=== PATIENT | male | born 1990 | race African-American/Black ===

== ENCOUNTER 2016-08-15 15:28 | Emergency (ER) ==
[2016-08-15 15:39] VITALS: BP 131/74
--- NOTE | 2016-08-15 16:10 | PROVIDER DOCUMENTATION ---
HPI-EENT General - General Chief Complaint: Cold Symptoms Stated Complaint: COLD SX Time Seen by Provider: 08/15/16 16:01 Allergies/Adverse Reactions: Patient Allergies Allergy/AdvReac Type Severity Reaction Status Date / Time brompheniramine maleate * Allergy Severe SEIZURES Verified 08/15/16 15:39 [From Dimetapp (brompheniramine-PPA)] phenylpropanolamine HCl * Allergy Severe SEIZURES Verified 08/15/16 15:39 [From Dimetapp (brompheniramine-PPA)] Home Medications: Home Medication List Medication Instructions Recorded Confirmed Last Taken Type Azithromycin [Zithromax Z-Jayden] 250 mg PO DIRECTED #1 pkg 08/15/16 Unknown Rx Guaifenesin/Dextromethorphan 10 ml PO BID #120 ml 08/15/16 Unknown Rx [Guaifenesin Dm Syrup] - History of Present Illness-EENT General Nature of Presenting Problem: Pt presents with c/o cough, congestion, fatigue x2 days Tried otc meds with symptoms EENT Location: reports: throat, facial Quality of Pain: reports: aching, pressure Associated Symptoms: reports: cough, fever, malaise, nasal congestion/drainage, sinus infection, sore throat Review of Systems - Adult - REVIEW OF SYSTEMS - ADULT Constitutional: reports: chills, fever, fatique Eyes: denies: blurred vision, double vision Ears, Nose, Mouth & Throat: reports: sinus problem, throat pain Cardiovascular: reports: no symptoms reported Respiratory: reports: cough Gastrointestinal: reports: no symptoms reported Neurological: denies: numbness, paresthesia All Other Systems: Reviewed and Negative Past History - Adult - PAST MEDICAL HISTORY-ADULT Review of Records: reports: Old Records Reviewed, Nursing Assessment Review, Medications Reviewed, Social history reviewed & non-contributory. - PRIOR SURGERIES/PROCEDURES Surgical/Procedure History: reports: tonsillectomy, other (ear drum surgery) - IMMUNIZATION STATUS Childhood Immunizations: UTD Flu Vaccine: See Nurse Assessment - FAMILY HISTORY Family History: reviewed, not pertinent - SOCIAL HISTORY Smoking: less than 1 pack/day Provider spent 3-5 mins advising pt. on dangers of tobacco.: Discussed manners to quit use, and f/u contacts for add'l counseling. Physical Exam- EENT - Physical Exam EENT Initial Vital Signs Reviewed: Yes General Appearance: appears well, alert, no apparent distress Eye Exam: bilateral eye: normal inspection, PERRL, EOMI Ear Exam: bilateral ear: auricle normal, canal normal, TM normal Nasal Exam: negative: sinus tenderness Throat Exam: negative: pharynx normal (erythematous), tonsillar swelling ( tonsils surgically removed) Neck: non-tender, full range of motion, supple. negative: lymphadenopathy Respiratory: chest non-tender, lungs clear, normal breath sounds Cardiovascular: regular rate, rhythm, no edema Abdominal Exam: normal bowel sounds, non tender, soft Lymphatic: negative: cervical node tenderness Back Exam: normal inspection Extremity: normal gait, normal inspection Integumentary: normal color, normal turgor, warm/dry Neurologic: grossly normal, no motor/sensory deficits Psych/Mental Status: normal thought content, normal thought process Progress - PLAN OF CARE/RESULTS Progress/Plan/Lab Results: Vital Signs Temp Pulse Resp BP Pulse Ox 08/15/16 15:37 98.5 F 77 18 131/74 100 brompheniramine maleate * [From Dimetapp (brompheniramine-PPA)] Allergy (Severe , Verified 08/15/16 15:39) SEIZURES phenylpropanolamine HCl * [From Dimetapp (brompheniramine-PPA)] Allergy (Severe , Verified 08/15/16 15:39) SEIZURES No Home Medications 08/15/16 Vital Signs Temp Pulse Resp BP Pulse Ox 08/15/16 15:37 98.5 F 77 18 131/74 100 brompheniramine maleate * [From Dimetapp (brompheniramine-PPA)] Allergy (Severe , Verified 08/15/16 15:39) SEIZURES phenylpropanolamine HCl * [From Dimetapp (brompheniramine-PPA)] Allergy (Severe , Verified 08/15/16 15:39) SEIZURES No Home Medications 08/15/16 Laboratory 08/15/16 16:23 Influenza A (Rapid) NEGATIVE Influenza B (Rapid) NEGATIVE Laboratory Tests 08/15/16 16:23 Influenza A (Rapid) NEGATIVE Influenza B (Rapid) NEGATIVE Departure - Departure Time of Disposition Order: 16:49 DIAGNOSIS: URI (upper respiratory infection) Qualifiers: URI type: unspecified URI Qualified Code(s): J06.9 - Acute upper respiratory infection, unspecified Disposition: HOME 01 Certified Medical Emergency: Emergent Condition: Good Additional Instructions: ED Follow Up Instructions: You have been treated by a care provider in the Emergency Department. These instructions are being provided to you so you can have an understanding of how to care for yourself upon discharge. Upon discharge from the Emergency Department, you are responsible for making arrangements for follow-up care by a physician of your choice. Take all prescribed medications as directed. Return to the Emergency Department immediately for any new or worsening symptoms. You may call the Physician Referral phone number at [phone] to obtain a list of Physicians who are taking new patients. Prescriptions: Guaifenesin/Dextromethorphan [Guaifenesin Dm Syrup] 10 ml PO BID #120 ml Azithromycin [Zithromax Z-Jayden] 250 mg PO DIRECTED #1 pkg Attestation - Physician/ ANA Attestation Patient care was provided by Advanced Practice Provider:: Yes Advanced Practice Provider:: Rhianna Rodriguez Advanced Practice Provider documentation review:: The Mid-level provider documentation, treatment plan and medical decision making was reviewed by the physician who agrees with all treatment and medical decision making by the MLP.
== END 2016-08-15 17:46 | disposition home or self-care (01) ==
LOC: P.ED 15:28
DX: J06.9 Acute upper respiratory infection, unspecified (principal); R05 Cough; R09.81 Nasal congestion; R53.83 Other fatigue; R50.9 Fever, unspecified; R53.81 Other malaise; J02.9 Acute pharyngitis, unspecified; F17.210 Nicotine dependence, cigarettes, uncomplicated; Z71.6 Tobacco abuse counseling
CPT/HCPCS: 87804; 99283